=== PATIENT | male | born 1950 | race Caucasian/White ===

== ENCOUNTER → 2022-04-16 | Outpatient (CLI) | payer OTHER | END | disposition home or self-care (01) | LOC: RAH 13:40 | PROVIDERS: ATTEND Internal Medicine Cardiovascular Disease | DX: Z13.6 Encounter for screening for cardiovascular disorders (principal); I51.5 Myocardial degeneration | CPT/HCPCS: 75571 ==

== ENCOUNTER → 2022-04-25 | Outpatient (CLI) | payer MEDICARE | END | disposition home or self-care (01) | LOC: RAH 14:50 | PROVIDERS: ATTEND Internal Medicine | DX: S46.001A Unspecified injury of muscle(s) and tendon(s) of the rotator cuff of right shoulder, initial encounter (principal); M75.121 Complete rotator cuff tear or rupture of right shoulder, not specified as traumatic; M19.011 Primary osteoarthritis, right shoulder; X58.XXXA Exposure to other specified factors, initial encounter; Y93.89 Activity, other specified; Y92.89 Other specified places as the place of occurrence of the external cause; Y99.8 Other external cause status | CPT/HCPCS: 73221 ==

== ENCOUNTER → 2022-05-28 | Outpatient (CLI) | payer MEDICARE ==
[~2022-05-28] MED LIST: CEFAZOLIN SODIUM 1 GM VIAL ONE; REGADENOSON 0.4 MG/5 ML PF SYG IVP SCH
== END | disposition home or self-care (01) ==
LOC: SHCH 07:54
PROVIDERS: ATTEND Internal Medicine Cardiovascular Disease
DX: I25.10 Atherosclerotic heart disease of native coronary artery without angina pectoris (principal); R93.1 Abnormal findings on diagnostic imaging of heart and coronary circulation
CPT/HCPCS: 78452; 96374; 93017; J0690; J1644; J2785; A9500 ×2

== ENCOUNTER → 2023-05-20 | Outpatient (CLI) | payer MEDICARE ==
[~2023-05-20] MED LIST changes: -CEFAZOLIN SODIUM 1 GM VIAL ONE; +REGADENOSON 0.4 MG/5 ML PF SYG IVP ONE; -REGADENOSON 0.4 MG/5 ML PF SYG IVP SCH
== END | disposition home or self-care (01) ==
LOC: SHCH 08:27
PROVIDERS: ATTEND Internal Medicine Cardiovascular Disease
DX: I25.10 Atherosclerotic heart disease of native coronary artery without angina pectoris (principal)
CPT/HCPCS: 78452; 96374; 93017; J2785; A9500 ×2

== ENCOUNTER → 2024-02-11 | Outpatient (CLI) | payer MEDICARE | END | disposition home or self-care (01) | LOC: RAH 08:45 | PROVIDERS: ATTEND Internal Medicine | DX: M15.9 Polyosteoarthritis, unspecified (principal) | CPT/HCPCS: 73620 ==

== ENCOUNTER 2024-12-02 05:54 | Day surgery (SDC) | payer MEDICARE ==
[2024-11-30 11:54] LABS: IMMATURE GRANULOCYTE ABSOLUTE 0.01 K/uL (0-1); NUCLEATED RED BLOOD CELLS 0.0 % (0.0-0.19); PLATELET COUNT (AUTO) 140 K/uL (130-400); RED BLOOD CELL COUNT(AUTO) 3.97 MIL/uL (4.50-6.20); RED CELL DISTRIBUTION WIDTH 12.0 % (11.0-15.5); WHITE BLOOD COUNT (AUTO) 4.2 K/uL (4.8-10.8)
[2024-11-30 11:59] LABS: APPEARANCE,URINE CLEAR (CLEAR); GLUCOSE, URINE (UA) NEGATIVE (NEGATIVE); LEUKOCYTE ESTERASE ,URINE NEGATIVE Leu/uL (NEGATIVE); NITRATE,URINE NEGATIVE (NEGATIVE); OCCULT BLOOD,URINE NEGATIVE (NEGATIVE)
[2024-11-30 12:03] LABS: CREATININE 0.9 mg/dL (0.5-1.3); GLOMERULAR FILTR. RATE CALC 89.0 mL/min (>90); GLUCOSE,RANDOM 83.0 mg/dL (70-105); SODIUM SERUM 139.0 mmol/L (136-145); UREA NITROGEN, BLOOD 19.0 mg/dL (7-18)
[2024-11-30 12:04] LABS: INR 1.07 (0.85-1.15)
--- NOTE | 2024-11-30 12:12 | EKG ---
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
[2024-11-30 12:14] LABS: ADD UA MICROSCOPIC NO
[2024-11-30 12:16] VITALS: BP 119/67; PULSE 56; RESP 17; TEMP 97.7
--- NOTE | 2024-11-30 19:52 | HMCIMG ---
EXAM: CR Chest, 1 View. CLINICAL HISTORY: PRE OP COMPARISON: None provided. FINDINGS: LUNGS: Mild emphysematous lung changes No active infiltrate PLEURAL SPACES: No evidence of pleural effusion or pneumothorax. MEDIASTINUM: Cardiac size and mediastinal contours within normal limits. BONES: No aggressive appearing osseous lesion seen. IMPRESSION: 1. Mild emphysematous lung changes 2. No active infiltrate /[place]
[~2024-12-02] VITALS: Ht 175.3 cm; Wt 68.8 kg
[2024-12-02] VITALS (10 sets, daily range): BP systolic 99–121; BP diastolic 53–65; PULSE 50–63; RESP 10–19; TEMP 97–97.6
[~2024-12-02 05:54] MED LIST changes: +EZET10TA48 PO; +ISOS30TA92 PO; +MVI PO; +NITR0.4T50 SL; -REGADENOSON 0.4 MG/5 ML PF SYG IVP ONE; +ROSU40TA88 PO; +TAMS-55 PO; +VERA120C10 PO
[2024-12-02] MEDS: 0.9%NACL 1000ML 1,000 ML IV SCH (06:34)
[2024-12-02] MEDS ORDERED: LIDOCAINE HCL 400MG/20ML VIAL ONE (07:09)
[2024-12-02] MEDS ORDERED: IOHEXOL 350 MG/ML 100ML INFUS..BTL IV ONE (07:09)
[2024-12-02] MEDS ORDERED: HEParin-NS 1,000 UNIT/500 ML 1,000 ML IV ONE (07:09)
[2024-12-02] MEDS ORDERED: MIDAZOLAM HCL 1 MG/ML 2ML VIAL ONE (07:19)
[2024-12-02] MEDS ORDERED: IOHEXOL-350 50ML VIAL IV ONE (07:25)
[2024-12-02] MEDS ORDERED: RANO500T6 PO (07:46)
[2024-12-02] MEDS ORDERED: NITROGLYCERIN 0.4 MG SL TAB SL PRN (08:00)
[2024-12-02] MEDS ORDERED: MULTIVITAMIN TABLET PO SCH (09:00)
[2024-12-02] MEDS ORDERED: EZETIMIBE 10 MG TAB PO SCH (09:00)
--- NOTE | 2024-12-02 12:02 | NUR ---
Full and complete discharge instructions given to Patient and Family both verbally and in writing. Explained Angiogram procedure precautions and follow up. Right groin site clean dry and intact. No evidence of bleeding, bruising or hematoma. Pedal pulses intact to BLE's. All questions answered. PIV removed with catheter tip intact. at bedside appearing supportive. W/C to POV with to home.
[2024-12-02] MEDS ORDERED: VERAPAMIL HCL 240 MG SRTAB PO SCH (21:00)
--- NOTE | 2024-12-14 17:12 | PRN ---
Cath Procedure Report CATH PROCEDURE REPORT CARDIAC CATHETERIZATION REPORT Cardiac catheterization report December 02, 2024 After informed consent the patient was prepped and draped in the usual fashion. He received a total of 15 cc of xylocaine in the right inguinal area. A six English sheath was introduced into the right femoral artery using modified Seldinger technique. Lisa four right six English diagnostic catheter was advanced over guidewire to the aortic root. Wire was removed and catheter engaged into the [place] right coronary artery which was visualized multiple planes. The catheter was removed and a Lisa four left six English diagnostic catheter was advanced over guidewire to the aortic root. Wire was removed and catheter engaged in the left main coronary artery. The left coronary system was visualized in multiple planes. The catheter was removed and a pigtail catheter six English was then advanced over guidewire across the aortic valve. Wire was removed and hemodynamics measured. A pullback with a continuous hemodynamic monitoring was performed and catheter was removed. A sheathogram was performed and closure device applied. The entire procedure was well tolerated without complications. Findings: The right coronary artery is a right-dominant vessel. It is free of obstruction gives rise to normal PDA and posterolateral branches. The left main coronary artery is free of obstruction. The left anterior descending artery has a 20% ostial stenosis the remainder of the vessel is free of obstruction. The diagonal branches are free of obstruction. The circumflex artery is a nondominant vessel free of obstruction gives rise to normal 1st and 2nd obtuse marginal arteries. There was no evidence of aortic stenosis. Left ventricular filling pressures were normal. 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 Medical management advised. Report dictated by REID Martinez MD, MD Dec 14, 2024 17:12
== END 2024-12-02 12:05 | disposition home or self-care (01) ==
LOC: DAH 05:54
PROVIDERS: ATTEND Internal Medicine Cardiovascular Disease
DX: I25.118 Atherosclerotic heart disease of native coronary artery with other forms of angina pectoris (principal); R94.39 Abnormal result of other cardiovascular function study; I25.84 Coronary atherosclerosis due to calcified coronary lesion; E78.5 Hyperlipidemia, unspecified; I47.19 Other supraventricular tachycardia; Z79.01 Long term (current) use of anticoagulants; Z79.899 Other long term (current) drug therapy
CPT/HCPCS: 80048; 83880; 85025; 85610; 85730; 81003; 36415; 71045; 93005; 93458; C1894; C1760; Q9965; J3490; J1644; Q9967; A4215; A4222; A4221; A4663; A4216; A4606; A4223 ×3; J2250

== ENCOUNTER → 2025-03-10 | Outpatient (CLI) | payer MEDICARE ==
[~2025-03-10] MED LIST changes: -EZET10TA48 PO; +EZET10TA80 PO; -ISOS30TA92 PO; +RANO500T6 PO
== END | disposition home or self-care (01) ==
LOC: RESP 12:36
PROVIDERS: ATTEND Internal Medicine Cardiovascular Disease
DX: R06.02 Shortness of breath (principal)
CPT/HCPCS: 94060